=== PATIENT | female | born 1990 | race Caucasian/White ===

== ENCOUNTER 2017-03-07 15:48 | Emergency (ER) | payer OTHER ==
--- NOTE | ~2017-03-07 | CT4 ---
[facility] A Service of [facility] / [facility] RADIOLOGY TEXT RESULTS PATIENT: LANCE SAEZ LOCATION: SED : 88 UNIT #: [id number] AGE: [address]: Allyson Birmingham MD SEX: F ORDER DR: [id number] [address] [address] [id number] E MR#: [id number] Acc #: [id number] NAME: LANCE SAEZ : 1990 SEX: F STUDY DATE/TIME: 03/07/2017 17:05 UNIT: SED ROOM: STUDY DESCRIPTION: CT Abd and Pelv Wo Cont Attending Physician: Allyson Birmingham M.D. Ordering Physician: Allyson Birmingham M.D. Primary Care Physician: [facility] MEDICAL IMAGING REPORT This report is preliminary unless electronic signature is present. EXAM CT scan of the abdomen and pelvis without contrast, 03/07/2017 HISTORY Right-side abdominal pain and lower abdominal pain beginning this morning. TECHNIQUE Spiral CT was performed through the abdomen and pelvis without oral or intravenous contrast administration as per clinician request. This CT exam was performed with one or more of the following radiation dose reduction techniques: automatic exposure control, adjustment of mA and/or kV according to patient size, and iterative reconstruction. FINDINGS ABDOMEN: The exam is limited by the lack of oral and intravenous contrast. The liver, spleen, pancreas, gallbladder and biliary tree, adrenal glands and kidneys are normal. PELVIS FINDINGS: The gut, mesenteric and mauro structures are normal. There is no free fluid in the abdomen or pelvis. The lung bases are normal. Pericardial cyst is unchanged compared with 05/06/2015. IMPRESSION Exam is limited by the lack of oral and intravenous contrast. Otherwise negative. Dictated by... Truong Husain M.D. [facility] A Service [facility] RADIOLOGY TEXT RESULTS PATIENT: LANCE SAEZ LOCATION: SED : 89 UNIT #: [id number] AGE: [address]: Allyson Birmingham MD SEX: F ORDER DR: THIS IS AN ELECTRONICALLY VERIFIED REPORT Truong Husain M.D. at 03/11/2017 8:22 AM DONNIE/fatoumata TD: 03/08/2017 00:56 JOB #: [id number] MEDICAL IMAGING REPORT Page 1 of 1
[~2017-03-07 15:48] MED LIST: ADVAIR 100-501 EACH IH; ALBUTEROL17 GM INH; BENTYL20 MG PO; DEPO-PROVER150 MG/ML INJ; DULERA 100 MCG/13 GM INH; HYDROCODON-ACE1 EAC7 PO; NO MEDICATIONS; ROBAXIN PO; ROBAXIN500 MG PO; TYLENOL #3 PO; ZOFRAN ODT4 MG PO; ZOFRAN PO
[2017-03-07 16:18] LABS: URINE SOURCE CLEAN CATCH
[2017-03-07 16:21] LABS: BASOPHIL% 0.5 % (0-2.5); EOSINOPHIL% 0.3 % (0.0-7.0); HEMATOCRIT 43.7 % (35.0-45.0); HEMOGLOBIN 15.2 gm/dL (12.0-16.0); LYMPHOCYTE# 2.9 X10e3 (1.0-3.5); MEAN CELL VOLUME 89.8 FL (83-96); MEAN CORPUSCULAR HEMOGLOBIN 31.2 PG (28-34); MEAN CORPUSCULAR HGB CONC 34.8 g/dL (30-36); MEAN PLATELET VOLUME 9.8 FL (6.5-11.5); MONOCYTE# 0.8 X10e3 (0-1.0); MONOCYTE% 8.6 % (3.0-12.0); NEUTROPHIL# 5.5 X10e3 (1.5-7.1); NEUTROPHIL% 59.6 % (40-75); PLATELET COUNT 175 X10e3 (140-420); RED BLOOD COUNT 4.87 X10e (3.90-5.30); RED CELL DISTRIBUTION WIDTH 12.2 % (11.0-15.5); WHITE BLOOD COUNT 9.2 X10e3 (4.0-10.5)
[2017-03-07 16:21] LABS: URINE APPEARANCE CLEAR; URINE BILIRUBIN NEG (NEG); URINE BLOOD NEG (NEG); URINE COLOR YELLOW; URINE GLUCOSE NEG (NORM); URINE KETONE NEG (NEG); URINE LEUKOCYTE ESTERASE NEG (NEG); URINE NITRATE NEG (NEG)
[2017-03-07 16:31] LABS: AMPHETAMINE NEG (NEG); BARBITURATES NEG (NEG); BENZODIAZEPINES NEG (NEG); COCAINE NEG (NEG); MARIJUANA NEG (NEG); OPIATES NEG (NEG); TRICYCLIC ANTIDEPRESSANTS NEG (NEG); U METHADONE NEG (NEG)
[2017-03-07 16:32] LABS: DIFF IND NO
[2017-03-07 16:32] LABS: MICRO INDICATED? NO; URINE PROTEIN NEG (NEG)
[2017-03-07 16:46] LABS: ALBUMIN SERUM 4.8 g/dL (3.5-5.0); ALKALINE PHOSPHATASE 58 U/L (32-92); ALT (SGPT) 12 U/L (10-40); AST (SGOT) 20 U/L (10-42); BILIRUBIN,TOTAL 0.3 mg/dL (0.2-2.0); BLOOD UREA NITROGEN 24 mg/dL (9-23); CALCIUM SERUM 9.4 mg/dL (8.4-10.2); CARBON DIOXIDE 20 mmol/L (22-31); CHLORIDE 109 mmol/L (100-111); CREATININE SERUM 0.8 mg/dL (0.6-1.4); GLOM FILT RATE Estimated 100.4 mL/min (>60); GLUCOSE FASTING 94 mg/dL (70-110); LIPASE 26 U/L (22-51); POTASSIUM 3.5 mmol/L (3.5-5.1); PROTEIN TOTAL SERUM 8.2 g/dL (6.0-8.3); SODIUM 139 mmol/L (135-145)
[2017-03-07 16:51] LABS: BILIRUBIN, DIRECT <0.1 mg/dL (0.0-0.2); BILIRUBIN,INDIRECT 0.2 mg/dL (0.0-0.9)
== END 2017-03-07 18:50 | disposition home or self-care (01) ==
LOC: SED 15:48
PROVIDERS: Student in an Organized Health Care Education/Training Program
DX: R10.9 Unspecified abdominal pain (principal); Z88.2 Allergy status to sulfonamides; Z88.1 Allergy status to other antibiotic agents; Z88.8 Allergy status to other drugs, medicaments and biological substances
CPT/HCPCS: 36415; 74176; 80048; 80076; 80307; 81003; 83690; 84703; 85025; 96374; 96375; 99284; J1170; J2405